=== PATIENT | male | born 2000 | race Hispanic/Latino ===

== ENCOUNTER 2018-06-10 22:58 | Emergency (ER) | payer BC, OTHER ==
[2018-06-10 23:04] VITALS: TEMP 98.2; O2SAT 98
--- NOTE | 2018-06-11 01:03 | ED PDOC ---
HPI: Psych/Substance Abuse Time Seen by Provider: 06/10/18 23:18 Chief Complaint (Nursing): Alcohol Ingestion History Per: Patient, EMS Onset/Duration Of Symptoms: Hrs Additional Complaint(s): 17 yo healthy M brought in by YURIDIA, [employer], for alcohol intoxication. Pt reports he drank one beer tonight and that his friends thought he was too drunk. He reports he feels fine though and did not drink any more than usual. Pt denies drugs use. Denies physical complaints. Pt denies SI/HI, visual or auditory hallucinations. PMD: Dr. lynn Past Medical History Reviewed: Historical Data, Nursing Documentation, Vital Signs Vital Signs: Last Vital Signs Temp 98.2 F 06/10/18 23:01 Pulse 102 H 06/10/18 23:01 Resp 16 06/10/18 23:01 BP 129/76 06/10/18 23:01 Pulse Ox 98 06/10/18 23:01 Primary Care Provider: FAMILY PROVIDER,NO - Medical History PMH: No Chronic Diseases - Surgical History Surgical History: No Surg Hx - Family History Family History: States: No Known Family Hx - Social History Current smoker - smoking cessation education provided: Yes Alcohol: Occasional Drugs: Denies - Allergies Allergies/Adverse Reactions: Allergies Allergy/AdvReac Type Severity Reaction Status Date / Time No Known Allergies Allergy Verified 06/10/18 23:01 Review of Systems Neurological: Negative for: Weakness, Confusion, Altered Mental Status Psych: Negative for: Anxiety, Depression, Psychosis, Suicidal ideation Physical Exam - Reviewed Nursing Documentation Reviewed: Yes Vital Signs Reviewed: Yes - Physical Exam Comments: GENERAL APPEARANCE: Patient is awake, alert, oriented x 3, in no acute distress. clear speech SKIN: Warm, dry; (-) cyanosis HEAD: (-) scalp swelling, (-) scalp tenderness. EYES: (-) conjunctival pallor, (-) scleral icterus, (-) nystagmus. (+)glossy red eyes ENMT: Mucous membranes moist. Airway patent: (-) stridor. NECK: (-) tenderness, (-) stiffness, (-) lymphadenopathy. HEART AND CARDIOVASCULAR: (-) irregularity; (-) murmur, (-) gallop. CHEST AND RESPIRATORY: (-) rales, (-) rhonchi, (-) wheezes; breath sounds equal. ABDOMEN: Soft, (-) distention, (-) tenderness, (-) guarding. pt spitting up into toilet NEURO AND PSYCH: Mental status as above. 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 Pupils equal and reactive; EOMI; steady gait, (-) facial asymmetry; tongue and uvula midline. Strength and DTRs symmetric. - ECG O2 Sat by Pulse Oximetry: 98 Medical Decision Making Medical Decision Makin:20 initial eval - alcohol intoxication -- poc glucose -- ETOH level -- Zofran ODT 01:15 on re eval pt is tolerating PO liquids without vomiting, A&Ox3, steady gait, pt is stable for dc Discussed results, diagnosis, treatment, return precautions and f/u with pt who is understanding and stable for dc Disposition - Clinical Impression Clinical Impression: Alcohol intoxication - Patient ED Disposition Is Patient to be Admitted: No Counseled Patient/Family Regarding: Studies Performed, Diagnosis, Need For Followup - Disposition Referrals: your, doctor [Other] Disposition: Routine/Home Disposition Time: 01:15 Condition: STABLE Additional Instructions: Thank you for letting us take care of you today. The emergency medical care you received today was directed at your acute symptoms. If you were prescribed any medication, please fill it and take as directed. It may take several days for your symptoms to resolve. Return to the Emergency Department if your symptoms worsen, do not improve, or if you have any other problems. Please contact your doctor in 2 days for re-evaluation and follow up / or call one of the physicians/clinics you have been referred to that are listed on the Patient Visit Information form that is included in your discharge packet. Bring any paperwork you were given at discharge with you along with any medications you are taking to your follow up visit. Our treatment cannot replace ongoing medical care by a primary care provider (PCP) outside of the emergency department. Instructions: Alcohol Abuse and Alcoholism (DC), Effects of Alcohol on Your Health Print Language: KAZAKH - POA Present On Arrival: None
[2018-06-11 01:26] VITALS: BP 133/84; PULSE 86; RESP 18
== END 2018-06-11 01:20 | disposition home or self-care (01) ==
LOC: H.ER 22:58
DX: F10.129 Alcohol abuse with intoxication, unspecified (principal); F17.200 Nicotine dependence, unspecified, uncomplicated